=== PATIENT | male | born 1940 | race Caucasian/White ===

== ENCOUNTER → 2016-09-04 | Outpatient (CLI) | payer BC ==
[2016-09-04 10:15] LABS: HEMATOCRIT 42.3 % (42-52); MEAN CELL VOLUME 90.2 fL (80-100); MEAN CORPUSCULAR HEMOGLOBIN 30.1 pg (25-34); MEAN CORPUSCULAR HGB CONC 33.3 g/dl (32-36); MEAN PLATELET VOLUME 10.7 fL (7.4-10.4); PLATELET COUNT 218 K/uL (130-400); RED BLOOD COUNT 4.69 M/uL (4.7-6.1); WHITE BLOOD COUNT 6.62 K/uL (4.8-10.8)
[2016-09-04 10:32] LABS: URINE APPEARANCE CLEAR (CLEAR); URINE BILIRUBIN NEG (NEG); URINE COLOR YELLOW; URINE EPITHELIAL CELL AUTO 0-5 /lpf (0-5); URINE NITRITE NEG (NEG); URINE SPECIFIC GRAVITY 1.023 (1.000-1.030); UROBILINOGEN NEG (NEG)
[2016-09-04 10:36] LABS: MANUAL MICROSCOPIC REQUIRED? NO; REVIEW REQ? NO
[2016-09-04 10:43] LABS: URINE PROTIEN/CREAT RATIO 0.2 (0-0.2); URINE TOTAL PROTEIN 24.9 mg/dl (0-11.9)
[2016-09-04 10:56] LABS: ALT/SGPT 68 U/L (12-78); BLOOD UREA NITROGEN 33 mg/dl (7-18); BUN/CREATININE RATIO 16.6 (10-20); CARBON DIOXIDE 24 mmol/L (21-32); CHLORIDE 108 mmol/L (98-107); CHOLESTEROL 199 mg/dl (0-200); GLUCOSE 121 mg/dl (70-99); POTASSIUM 3.8 mmol/L (3.5-5.1); SODIUM 142 mmol/L (136-145); URIC ACID 5.6 mg/dl (2.6-7.2)
[2016-09-04 11:00] LABS: ALKALINE PHOSPHATASE 70 U/L (45-117); AST/SGOT 39 U/L (15-37); CHOLESTEROL/HDL RATIO 5.7; HDL CHOLESTEROL 35 mg/dl; TRIGLYCERIDES 400 mg/dl (0-150)
== END | disposition home or self-care (01) ==
LOC: C.LAB1850 09:15
PROVIDERS: ATTEND Internal Medicine Nephrology
DX: I10 Essential (primary) hypertension (principal); E78.1 Pure hyperglyceridemia; N18.2 Chronic kidney disease, stage 2 (mild); E55.9 Vitamin D deficiency, unspecified; E11.9 Type 2 diabetes mellitus without complications; M10.9 Gout, unspecified

== ENCOUNTER → 2016-12-12 | Outpatient (CLI) | payer BC ==
[2016-12-12 12:11] LABS: HEMATOCRIT 39.9 % (42-52); MEAN CELL VOLUME 91.1 fL (80-100); MEAN CORPUSCULAR HEMOGLOBIN 31.1 pg (25-34); MEAN CORPUSCULAR HGB CONC 34.1 g/dl (32-36); MEAN PLATELET VOLUME 10.7 fL (7.4-10.4); PLATELET COUNT 205 K/uL (130-400); RED BLOOD COUNT 4.38 M/uL (4.7-6.1); WHITE BLOOD COUNT 6.56 K/uL (4.8-10.8)
[2016-12-12 12:51] LABS: ALT/SGPT 73 U/L (12-78); AST/SGOT 38 U/L (15-37); BLOOD UREA NITROGEN 32 mg/dl (7-18); BUN/CREATININE RATIO 16.8 (10-20); CALCIUM 9.3 mg/dl (8.5-10.1); CARBON DIOXIDE 26 mmol/L (21-32); CHLORIDE 108 mmol/L (98-107); GLUCOSE 107 mg/dl (70-99); POTASSIUM 3.7 mmol/L (3.5-5.1); SODIUM 142 mmol/L (136-145); URIC ACID 5.1 mg/dl (2.6-7.2)
[2016-12-12 12:55] LABS: ALB/GLOB RATIO 1.1 (0.9-2); ALKALINE PHOSPHATASE 76 U/L (45-117); CHOLESTEROL 169 mg/dl (0-200); CHOLESTEROL/HDL RATIO 5.5; HDL CHOLESTEROL 31 mg/dl; TRIGLYCERIDES 457 mg/dl (0-150)
== END | disposition home or self-care (01) ==
LOC: C.LAB1850 10:24
PROVIDERS: ATTEND Internal Medicine Nephrology
DX: E55.9 Vitamin D deficiency, unspecified (principal); E78.1 Pure hyperglyceridemia; I10 Essential (primary) hypertension; N18.2 Chronic kidney disease, stage 2 (mild)

== ENCOUNTER → 2017-06-05 | Outpatient (CLI) | payer BC ==
[2017-06-05 10:08] LABS: HEMATOCRIT 42.7 % (42-52); HEMOGLOBIN 14.5 g/dL (14.0-18.0); MEAN CELL VOLUME 92.8 fL (80-100); MEAN CORPUSCULAR HEMOGLOBIN 31.5 pg (25-34); PLATELET COUNT 195 K/uL (130-400); RED CELL DISTRIBUTION WIDTH SD 46.9 fL (36.4-46.3); WHITE BLOOD COUNT 6.03 K/uL (4.8-10.8)
[2017-06-05 10:20] LABS: ALBUMIN 4.3 gm/dl (3.4-5.0); ALT/SGPT 92 U/L (12-78); BLOOD UREA NITROGEN 33 mg/dl (7-18); CALCIUM 9.6 mg/dl (8.5-10.1); CARBON DIOXIDE 23 mmol/L (21-32); CHOLESTEROL 194 mg/dl (0-200); CREATININE 1.87 mg/dl (0.60-1.40); GLUCOSE 131 mg/dl (70-99); POTASSIUM 3.7 mmol/L (3.5-5.1); SODIUM 139 mmol/L (136-145); URIC ACID 3.3 mg/dl (2.6-7.2)
[2017-06-05 10:21] LABS: ALKALINE PHOSPHATASE 94 U/L (45-117); AST/SGOT 56 U/L (15-37); TOTAL PROTEIN 8.5 gm/dl (6.4-8.2)
== END | disposition home or self-care (01) ==
LOC: C.LAB1850 08:52
PROVIDERS: ATTEND Internal Medicine Nephrology
DX: I12.9 Hypertensive chronic kidney disease with stage 1 through stage 4 chronic kidney disease, or unspecified chronic kidney disease (principal); E11.9 Type 2 diabetes mellitus without complications; E78.1 Pure hyperglyceridemia; N18.2 Chronic kidney disease, stage 2 (mild); E55.9 Vitamin D deficiency, unspecified; M10.9 Gout, unspecified